=== PATIENT | male | born 1945 | race Caucasian/White ===

== ENCOUNTER 2017-09-28 19:15 | Inpatient (IN) | payer MEDICARE, MEDICAID ==
--- NOTE | 2017-09-28 19:38 | ED Physician Chart ---
ED Chief Complaint/HPI - Patient Information Date Seen:: 09/28/17 Time Seen:: 19:15 Chief Complaint:: Agitation History of Present Illness:: onset x 3 days of agitation and hostile behavior; no report of trauma, H/As, S/T , neck pain, C/P, SOB, Abd. Pain, A/N/V/D/C, fever, chills, or urinary s/s Allergies:: Allergies Allergy/AdvReac Type Severity Reaction Status Date / Time chlorpromazine Allergy Verified 09/28/17 19:28 [From Thorazine] lithium Allergy Verified 09/28/17 19:28 Vitals:: Vital Signs - 8 hr 09/28/17 19:15 Temp 97.2 F HR 66 RR 20 BP 131/76 O2 Sat % 97 Historian:: Patient, EMS Review:: Nurse's Note Reviewed, Old Chart Reviewed, EMS run form Reviewed ED Review of Systems - Review of Systems General/Constitutional: No fever, No chills, No weight loss, No weakness, No diaphoresis, No edema, No loss of appetite Skin: No skin lesions, No rash, No bruising Head: No headache, No light-headedness Eyes: No loss of vision, No pain, No diplopia ENT: No earache, No nasal drainage, No sore throat, No tinnitus Neck: No neck pain, No swelling, No thyromegaly, No stiffness, No mass noted Cardio Vascular: No chest pain, No palpitations, No PND, No orthopnea, No edema Pulmonary: No SOB, No cough, No sputum, No wheezing GI: No nausea, No vomiting, No diarrhea, No pain, No melena, No hematochezia, No constipation, No hematemesis G/U: No dysuria, No frequency, No hematuria, No nacturia Musculoskeletal: No bone or joint pain, No back pain, No muscle pain Endocrine: No polyuria, No polydipsia Psychiatric: Prior psych history, No depression, Anxiety, No suicidal ideation, No homicidal ideation, Auditory hallucination, No visual hallucination Hematopoietic: No bruising, No lymphadenopathy Allergic/Immuno: No urticaria, No angioedema Neurological: No syncope, No focal symptoms, No weakness, No paresthesia, No headache, No seizure, No dizziness, No confusion, No vertigo ED Past Medical History - Past Medical History Obtainable: Yes Past Medical History: HTN Family History: HTN Social History: Non Smoker, No Alcohol, No Drug Use, Single, Care Facility Surgical History: None Psychiatricy History: Schizophrenia, Bipolar Medication: Reviewed Family Medical History - Family Member Mother History Unknown: Yes ED Physical Exam - Physical Examination General/Constitutional: Awake, Well-developed, well-nourished, Alert, No distress, GCS 15, Non-toxic appearing, Ambulatory Head: Atraumatic Eyes: Lids, conjuctiva normal, PERRL, EOMI Skin: Nl inspection, No rash, No skin lesions, No ecchymosis, Well hydrated, No lymphadenopathy ENMT: External ears, nose nl, TM canals nl, Nasal exam nl, Lips, teeth, gums nl , Oropharynx nl, Tonsils nl Neck: Nontender, Full ROM w/o pain, No JVD, No nuchal rigidity, No bruit, No mass, No stridor Respiratory: Nl effort/Exclusion, Clear to Auscultation, No Wheeze/Rhonchi/Rales Cardio Vascular: RRR, No murmur, gallop, rubs, NL S1 S2, Carotid/Femoral/Distal pulses equal bilaterally GI: No tenderness/rebounding/guarding, No organomegaly, No hernia, Normal BS's, Nondistended, No mass/bruits, No McBurney tenderness : No CVA tenderness Extremities: No tenderness or effusion, Full ROM, normal strength in all extremities, No edema, Normal digits & nails Neuro/Psych: Alert/oriented, DTR's symmetric, Normal sensory exam, Normal motor strength, Judgement/insight normal, Mood normal, Normal gait, No focal deficits Other Neuro/Psych comments:: + Psychomotor Agitation; no SIs; Mood/Affect: Stable Misc: Normal back, No paraspinal tenderness ED Labs/Radiology/EKG Results - Lab Results Comments:: unremarkable - EKG Interpretations EKG Time:: 19:47 Rate & Rhythm: 55; SB Comments:: nion-specific st-t changes ED Septic Shock - . Is Septic Shock (SBP<90, OR Lactate>4 mmol\L) present?: No - <6hrs of presentation: Vital Signs: Vital Signs - 8 hr 09/28/17 19:15 Temp 97.2 F HR 66 RR 20 BP 131/76 O2 Sat % 97 ED Reassessment (Disposition) - Reassessment Reassessment Condition:: Improved - Diagnosis Diagnosis:: Agitation; Psychosis; HTN; Anxiety; Paranoid SchiZophrenia; Bipolar Disorder; Medical Clearance - Aftercare/Follow up Instructions Aftercare/Follow-Up Instructions:: Counseled pt regarding lab results/diagnosis & need follow up, Counseled pt & family regarding lab results/diagnosis & need follow up - Patient Disposition Discharge/Transfer:: Acute Care w/in this hosp Admitted to:: [facility] Condition at Disposition:: Stable, Improved
[2017-09-28 19:57] LABS: % BASOPHILS 0.5 % (0.0-2.0); % EOSINOPHILS 4.8 % (0.0-5.0); % LYMPHOCYTES 33.4 % (20.0-50.0); % MONOCYTES 8.4 % (2.0-10.0); % NEUTROPHILS 52.9 % (40.0-80.0); EOSINOPHILE ABSOLUTE 0.3 Th/cmm (0.1-0.4); HEMATOCRIT 35.8 % (41.0-60); HEMOGLOBIN 12.3 gm/dL (12-16); LYMPHOCYTE ABSOLUTE 2.4 Th/cmm (1.5-3.0); MEAN CORPUSCULAR HEMOGLOBIN 30.5 pg (27.0-31.0); MEAN CORPUSCULAR HGB CONC 34.3 pg (28.0-36.0); MEAN PLATELET VOLUME 6.6 fl; MONOCYTE ABSOLUTE 0.6 Th/cmm (0.3-1.0); NEUTROPHILE ABSOLUTE 3.9 Th/cmm (1.8-8.0); PLATELET COUNT 229 Th/cmm (150-400); RED BLOOD COUNT 4.03 Mil/cmm (3.80-5.80); RED CELL DISTRIBUTION WIDTH 12.9 % (11.5-20.0); WHITE BLOOD COUNT 7.2 Th/cmm (4.8-10.8)
[2017-09-28 20:06] LABS: URINE MICROSCOPIC INDICATED? YES; URINE SOURCE CLEAN C
[2017-09-28 20:09] LABS: ALB/GLOB RATIO 1.4 (1.0-1.8); ALBUMIN 3.8 gm/dL (4.2-5.5); ALKALINE PHOSPHATASE 77 U/L (34-104); ANION GAP 10.4 (7.0-16.0); BILIRUBIN,TOTAL 0.3 mg/dL (0.3-1.0); BUN - UREA NITROGEN 12 mg/dL (7-25); CALCIUM SERUM 8.9 mg/dL (8.6-10.3); CARBON DIOXIDE 28.5 mEq/L (21.0-31.0); CHLORIDE 96 mEq/L (98-107); CHOLESTEROL 135 mg/dL (<200); CREATININE - SERUM 0.8 mg/dL (0.7-1.3); GFR AFRICAN-AMERICAN > 60.0 ml/min (>90); GFR NON AFRICAN-AMERICAN > 60.0 ml/min; GLUCOSE 106 mg/dL (70-105); HDL -HIGH DENSITY LIPOPROTEIN 23 mg/dL (23-92); POTASSIUM SERUM 3.9 mEq/L (3.5-5.1); SGOT 13 U/L (13-39); SGPT/ALT 8 U/L (7-52); SODIUM SERUM 131 mEq/L (136-145); TOTAL PROTEIN,SERUM 6.6 gm/dL (6.0-8.3); TRIGLYCERIDES 83 mg/dL (<150)
[2017-09-28 20:10] LABS: ACETAMINOPHEN < 10.0 ug/mL (10.0-30.0); SALICYLATES (ASPIRIN) < 25.0 mg/L (30.0-100.0)
[2017-09-28 20:14] LABS: URINE BILIRUBIN NEGATIVE (NEGATIVE); URINE BLOOD SMALL (NEGATIVE); URINE GLUCOSE (UA) NEGATIVE (NEGATIVE); URINE KETONE NEGATIVE (NEGATIVE); URINE LEUKOCYTE ESTERASE NEGATIVE (NEGATIVE); URINE NITRATE NEGATIVE (NEGATIVE); URINE PROTEIN NEGATIVE (NEGATIVE); URINE UROBILINOGEN 0.2 E.U./dL (0.2 - 1.0)
[2017-09-28 20:28] LABS: AMPHETAMINE URINE NEGATIVE (NEGATIVE); BARBITURATES URINE NEGATIVE (NEGATIVE); BENZODIAZEPINES QUAL URINE NEGATIVE (NEGATIVE); CANNABINOID THC NEGATIVE (NEGATIVE); COCAINE METABOLITE QUAL URINE NEGATIVE (NEGATIVE); METHADONE URINE NEGATIVE (NEGATIVE); METHAMPHETAMINES QUAL URINE NEGATIVE (NEGATIVE); OPIATES (MORPHINE) QUAL. URINE NEGATIVE (NEGATIVE); PHENCYCLIDINE (PCP) URINE NEGATIVE (NEGATIVE); TRICYCLICS (TCA) QUAL. URINE NEGATIVE (NEGATIVE)
[2017-09-28 20:35] LABS: URINE BACTERIA NONE SEEN /hpf (NONE SEEN); URINE CLARITY CLEAR (CLEAR); URINE COLOR YELLOW; URINE EPITHELIAL CELLS OCCASIONAL /lpf (FEW); URINE WBC 0-2 /hpf (0-5)
[2017-09-28 21:15] VITALS: BP 137/66
[2017-09-28] MEDS ORDERED: Magnesium Hydroxide (MOM) 30 mL UDC PO PRN (22:05)
[2017-09-28] MEDS ORDERED: Maalox 30 mL Cup PO PRN (22:05)
[2017-09-29] MEDS: Multivitamin Tab PO SCH (09:26)
--- NOTE | 2017-09-29 11:44 | Psychosocial Evaluation ---
DATE OF SERVICE: 09/28/2017 IDENTIFYING INFORMATION: The patient is a 71-year-old male. CHIEF COMPLAINT: "They tell me the doctor wanted you to go to the hospital." HISTORY OF PRESENT ILLNESS: The patient was sent to [place] because of aggressive behavior and agitation. The patient is a well-known case to me, has been seeing in the ER. The patient reports that he has no clue why he is here. He was acting aggressive prior to coming here. The patient has been seeing me at [facility] and he is being preoccupied with going on his own. He used to live in a boarding care and the patient denies any substance abuse problem. He denies any auditory or visual hallucination or paranoia with history of prior treatment for mental illness, but however, he is unable to give much information. The patient has been on Haldol 5 mg 3 times a day while we have been trying to wean him off, but it did not work. PAST MEDICAL HISTORY: Deferred to the medical problems. HE IS ALLERGIC TO CHLORPROMAZINE AND LITHIUM. It seemed like he may have a history of bipolar disorder. FAMILY AND SOCIAL HISTORY: The patient reports he is single, never . 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 Denies substance abuse problem. Denies family psychotic disorder. MENTAL STATUS EXAMINATION: The patient is appropriately dressed, not very well groomed. He was able to tell me the date, where he is, however, he is not sure why he is here. He denies previous mental illness, yet he is ALLERGIC TO LITHIUM AND CHLORPROMAZINE, which means that he was on those medications before; however, he denies that. So, he is not a very good historian. His long-term memory is good for age, date of . Recent memory is poor, cannot remember events, ____ coming here. He denies auditory or visual hallucinations. He denies that he wanted to harm himself or anybody, he was acting aggressive at the snf. His insight and judgment is impaired. IMPRESSION: AXIS I: Bipolar disorder with psychosis also cognitive disorder, not otherwise specified. His assets, he is accepting treatment. Negative poor coping skills. INITIAL TREATMENT PLAN: The patient will continue with the Haldol. We will do group therapy, milieu therapy, and individual therapy. ESTIMATED LENGTH OF STAY: 3-7 days. DISCHARGE CRITERIA: No longer agitated or threatening. After discharge, outpatient. [facility]# [id number]
--- NOTE | 2017-09-29 12:42 | History & Physical ---
ADMIT DATE: CHIEF COMPLAINT: "I don't know." HISTORY OF PRESENT ILLNESS: The patient was transferred from [facility] to [facility] Room after the patient was noted to have increasing agitation and aggressive behavior towards staff. The patient was evaluated by Emergency Room MD and subsequently admitted to the Geropsych Unit. I have been asked this patient to see for medical management. I have been following this patient at [facility]. PAST MEDICAL HISTORY: Remarkable for: 1. Hypertension. 2. DJD. 3. Psychotic disorder. MEDICATIONS: List has been reviewed and reconciled appropriately. ALLERGIES: The patient is not allergic to medication. SOCIAL HISTORY: He lives in a chcf, has a history of smoking cigarette, but no alcohol or drug abuse. FAMILY MEDICAL HISTORY: Remarkable for hypertension. REVIEW OF SYSTEMS: The patient denies any headache, blurred vision, double vision, dysphagia, odynophagia, runny nose, stuffy nose, fever, chills, cough, chest pain, shortness of breath, palpitation, dizziness, nausea, vomiting, diarrhea, dysuria, hematuria, hematochezia, melena, no seizure or syncopal episode. PHYSICAL EXAMINATION: GENERAL: Alert, awake, oriented, lying in the bed without any acute distress. VITAL SIGNS: Temperature 97.6, pulse 64, respiratory rate 18, blood pressure 132/68. HEENT: Normocephalic, atraumatic. Extraocular muscles are intact. Tongue was pink and coated. Oropharynx congested. Nasal mucosa congested. No oral lesions noted. No exudate noted. No sinus tenderness. External auditory canal and tympanic membranes are well visualized. NECK: Supple, no JVD, no hepatojugular reflex. No lymphadenopathy, thyromegaly, or carotid bruit. HEART: Both heart sounds are regular. No S3, no S4, no murmur. CHEST: Lung equal in expansion. Mild expiratory wheezing. ABDOMEN: Soft. No guarding, no rigidity. Bowel sounds are present. No palpable mass. EXTREMITIES: No edema, no cyanosis, no clubbing. Peripheral pulses are +2. No calf tenderness noted. EXTERNAL GENITALIA AND RECTAL EXAMINATION: Not done as per patient's request. NEUROLOGIC: Alert, awake, oriented to time, place, person. 2-12 cranial nerves are intact. Power in upper and lower extremities 5+. Sensory to light touch intact. Babinskis in both toes are going down. No cerebral sign. AVAILABLE DIAGNOSTIC DATA: Performed in the Emergency Room has been reviewed. CLINICAL IMPRESSION: 1. Psychotic disorder exacerbation. 2. Hypertension. 3. Degenerative joint disease. 4. Chronic obstructive pulmonary disease, most likely. 5. Nicotine dependency. PLAN: 1. Monitor blood pressure. 2. Antihypertensive medicine. 3. Psychotic evaluation and management deferred to psychiatrist. 4. Smoking cessation counseling discussed. 5. Adding Spiriva for his COPD. 6. Pulmonary function test to be done as an outpatient. 7. The patient is medically stable to participate in the activity provided at the Geropsych Unit. 8. The patient will be followed by us during his stay in the hospital. 9. Care plan reviewed and discussed with staff. JOB# [id number]
[2017-09-29 21:55] LABS: A1C % 6.2 % (4.0-6.0)
[2017-09-30] MEDS: Magnesium Hydroxide (MOM) 30 mL UDC PO PRN (08:43)
[2017-09-30] MEDS: Multivitamin Tab PO SCH (08:44)
--- NOTE | 2017-10-01 00:04 | Progress Notes ---
DATE: 09/30/2017 SUBJECTIVE: Case discussed with staff of the patient and reviewed record. The patient continues to be unpredictable, impulsive, internally preoccupied, confused, unable to make safe plan for self-care. He is compliant with the medication with no side effects, no sedation or nausea. No extrapyramidal symptoms. He is trying to convince me to send him to an apartment or to at least a senior care; however, I am not sure that he can live along with his behavior. He needs supervision unpredictable, impulsive. His lab work showed low hematocrit. The rest within normal range. Chemistry panel with low sodium and high blood sugar, high hemoglobin A1c and low albumin, the rest within normal range. Urinalysis shows small blood and urine drug screen is negative. RPR nonreactive. I will be consulting with the medical doctor, Dr. Morales regarding abnormal lab work and I discussed with Makenzie, who is going to page him to let him know about that, so he can handle it. We will continue to work with the patient in group therapy, milieu therapy, and adjust the medications. JOB# [id number]
[2017-10-01] MEDS: Multivitamin Tab PO SCH (09:33)
[2017-10-01] MEDS: Magnesium Hydroxide (MOM) 30 mL UDC PO PRN (14:23)
--- NOTE | 2017-10-02 01:13 | Progress Notes ---
DATE: 10/01/2017 SUBJECTIVE: Case discussed with staff of the patient, reviewed records. The patient has been isolating himself. Continues to be unpredictable, impulsive, needing redirection. He is sleeping better, eating better. He believes that he can live on his own; however, I am not sure of that because of her aggressive behavior and confusion. Unable to make safe plan for self-care. No side effects to the medication, no sedation, no nausea and no extrapyramidal symptoms. PLAN: We will continue to work with the patient in group therapy, milieu therapy, adjust the medication as needed. JOB# [id number]
[2017-10-02] MEDS: Multivitamin Tab PO SCH (08:48)
--- NOTE | 2017-10-02 22:08 | Progress Notes ---
DATE: 10/02/2017 SUBJECTIVE: The patient seen and examined. The patient denies any chest pain, short of breath, palpitation, dizziness, nausea, vomiting. PHYSICAL EXAMINATION: VITAL SIGNS: Temperature 97, pulse is 64, respiratory rate 18, blood pressure 140/80. HEENT: Poor dentition. NECK: Supple, no JVD. HEART: Regular, no murmur. CHEST: Lung equal in expansion. LUNGS: No wheezing, no crackles. ABDOMEN: Soft. No guarding, rigidity. Bowel sounds heard. No palpable mass. EXTREMITIES: No edema. CLINICAL IMPRESSION: 1. Psychotic disorder exacerbation. 2. Hypertension. 3. Chronic obstructive pulmonary disease. 4. Degenerative join disease. 5. Smoking. PLAN: 1. Psych followup and psych medication. 2. Low sodium diet. 3. Monitor blood pressure. 4. Spiriva as an outpatient. 5. General nursing care. 6. The patient is stable for psychiatric treatment. JOB# [id number]
--- NOTE | 2017-10-02 23:42 | Progress Notes ---
DATE: 10/02/2017 SUBJECTIVE: Case was discussed with staff of the patient, reviewed records. The patient continues to stay to himself. In general, he reports sleeps well, eats well. He continues to be unpredictable, impulsive, very poor insight about prior to coming here his aggressive behavior. He denies any current side effects with the medication, no sedation, no nausea. PLAN: We will continue to work with the patient in group therapy, milieu therapy, adjust the medication as needed. JOB# [id number]
[2017-10-03] MEDS: Multivitamin Tab PO SCH (08:57)
--- NOTE | 2017-10-04 00:58 | Progress Notes ---
DATE: 10/03/2017 SUBJECTIVE: Case discussed with staff of the patient and reviewed records. The patient continues to have poor insight about his behavior, minimizing events that led to his admission. He is sleeping well and eating well. He would like to go to live on his own; however, not sure if he can live on his own or he may have to go to [place] and then later decide if he would be able to do that and so far no side effects with the medication, no sedation, no nausea, no extrapyramidal symptoms. We will continue to work with the patient in group therapy, milieu therapy, adjust the medication as needed. JOB# [id number]
[2017-10-04] MEDS: Multivitamin Tab PO SCH (09:20)
--- NOTE | 2017-10-04 13:11 | Progress Notes ---
DATE: 10/04/2017 Case was discussed with staff of the patient, reviewed records. The patient has been calmer in general. He is sleeping well, eating well. We are trying to work on placement for him and he does not want to going to [place], would like to go to a lesser level of care, though I do not have doubts about that. He is sleeping better, eating better. No side effects with the medication, no sedation nausea, no extrapyramidal symptoms. Her lab work showed low hematocrit. The rest of the CBC within normal range. Chemistry panel with low sodium and one-third to one and high blood sugar and hemoglobin, low albumin, and the rest within normal range. Urinalysis with small blood in the urine. His toxicology screen is negative. RPR ____. Dr. Morales was already consulted about his abnormal lab work and we will continue outpatient group therapy, milieu therapy, adjust the medication as needed. JOB# [id number]
[2017-10-05] MEDS: Multivitamin Tab PO SCH (08:59)
--- NOTE | 2017-10-06 00:07 | Progress Notes ---
DATE: 10/05/2017 SUBJECTIVE: Case is discussed with the staff of the patient and reviewed records. The staff reports that the patient has been hallucinating. He was wandering on the unit. When I talked to him, he was minimizing any hallucinations. He tends to get easily agitated. PLAN: I will be adding Depakote to his medication to help with his agitation and irritability. No side effects from the medication, no sedation, no nausea, no extrapyramidal symptoms. We will continue to work the patient in group therapy, milieu therapy, adjust the medication as needed. JOB# [id number]
[2017-10-06] MEDS: Multivitamin Tab PO SCH (09:32)
--- NOTE | 2017-10-06 23:18 | Progress Notes ---
DATE: 10/06/2017 SUBJECTIVE: Case was discussed with staff of the patient and reviewed records. The patient continues to be reported by the staff to be at times responding to internal stimuli, though when I ask him, he would deny it. He continues to be unpredictable, impulsive, needing redirection. He is sleeping well and eating well. He has no side effect to the medication, no sedation, no nausea and I did add Depakote to his medication to help with improving his behavior with no side effects, no sedation, no nausea and we will continue to work with the patient in group therapy, milieu therapy, adjust medication as needed. JOB# [id number]
[2017-10-07] MEDS: Multivitamin Tab PO SCH (10:00)
[2017-10-07] MEDS: Magnesium Hydroxide (MOM) 30 mL UDC PO PRN (21:10)
--- NOTE | 2017-10-07 22:05 | Progress Notes ---
DATE: 10/07/2017 SUBJECTIVE: The patient was sent to [place] due to aggressive behaviors and agitation. The patient is being followed at [facility] by Dr. Syed for ongoing behavioral disturbances. States he is here because of "agitation." States he got agitated because he was not being patient with case management. Dr. Syed noting over the past few days that he still remains somewhat psychotic, responding to internal stimuli, unruly, still with erratic and impulsive behaviors. Medications were noted. The patient is eating fairly well, sleeping with qualitative researcher awakenings. Currently on Haldol and Depakote. ASSESSMENT: The patient remains unruly, agitated, ongoing psychotic symptoms. PLAN: Given his ongoing behaviors. He is not safe for discharge. We will monitor and titrate and adjust medications. JOB# [id number]
[2017-10-08] MEDS: Multivitamin Tab PO SCH (09:04)
[2017-10-08] MEDS: Magnesium Hydroxide (MOM) 30 mL UDC PO PRN (20:08)
--- NOTE | 2017-10-08 21:25 | Progress Notes ---
DATE: 10/08/2017 SUBJECTIVE: The patient was sent from [place] due to aggressive behaviors, agitation. The patient walking around today. He states he wants to go to ____another hospital_. Concerns for underlying psychotic symptoms. The patient is calm on exam. Slept for about 6 hours. Staff noting he remains anxious, somewhat depressed, mildly suspicious, fair orientation, calm, following unit rules and directions. MEDICATIONS: Noted. No medication side effects. ASSESSMENT: The patient seems to be improving, calmer, more cooperative, psychotic symptoms are still ongoing but seem to be dissipating, paranoia dissipating. PLAN: We will continue to monitor, continue Haldol. The patient tolerating well. JOB# [id number]
[2017-10-09] MEDS: Multivitamin Tab PO SCH (08:11)
[2017-10-10] MEDS: Multivitamin Tab PO SCH (08:40)
--- NOTE | 2017-10-10 10:54 | Progress Notes ---
DATE: 10/09/2017 Case discussed with staff of the patient, reviewed records. The patient told me today that the apparently the case worker finding a different place and I will need to check with the case worker. She is not currently available to see if this is a safe place for him that it will fit his needs because of his history of psychosis. He is still confused, unpredictable, impulsive and needing redirection. He is compliant with the medication with no side effects, no sedation, no nausea, and no extrapyramidal symptoms and we will continue work with the patient in group therapy, milieu therapy, and adjust medications as needed. JOB# [id number]
--- NOTE | 2017-10-11 02:42 | Progress Notes ---
DATE: 10/10/2017 Case was discussed with staff of the patient and reviewed records. I talked to the protective services case worker, who said that his daughter and the staff found him a place in a boarding care where the doctors are also going to monitor him and he is being monitored there and the doctors will be consulted for displacement. The patient does not want to go back to [place]. He is sleeping well and eating well. He is not acting anyway dangerous. He has been compliant to the medication with no side effects, no sedation, no nausea, and no extrapyramidal symptoms. I did order his Depakote level to be checked, results are pending. We will continue to work with the patient in group therapy, milieu therapy, and adjust the medication as needed. JOB# [id number]
[2017-10-11] MEDS: Multivitamin Tab PO SCH (09:41)
--- NOTE | 2017-10-11 22:34 | Progress Notes ---
DATE: 10/11/2017 SUBJECTIVE: Case was discussed with the staff of the patient and reviewed records. Apparently his daughter wants him to go to a board and care where there is a doctor to come and check on him; they will be monitoring his medication. Does not want to go back to [place]. The patient seems to be able to take care of himself, sleeping well, eating well. No suicidal ideation, no homicidal ideation, no paranoia. No side effects. Today we are still working on discharge plan. Lab work shows low hematocrit 35.8, hemoglobin within normal range. Chemistry panel with low sodium and high blood sugar, high hemoglobin A1c and the rest within normal range. His urinalysis with small blood in the urine and urine drug screen was negative. RPR nonreactive. PLAN: We will continue to work on the discharge plan. We will continue to work with the patient in group therapy, milieu therapy, and adjust medications as needed. JOB# [id number]
--- NOTE | 2017-10-11 23:02 | Progress Notes ---
DATE: 10/11/2017 SUBJECTIVE: The patient was seen and examined. OBJECTIVE: GENERAL: The patient was lying in the bed. The patient has no new complaint. VITAL SIGNS: Temperature 97.8, pulse 65, respiratory rate is 18, blood pressure 143/64. HEENT: No facial asymmetry. NECK: Supple, no JVD. HEART: Regular. CHEST: Lung equal in expansion. Mild expiratory wheezing. ABDOMEN: Soft. No guarding, no rigidity. Bowel sounds present. No palpable mass. EXTREMITIES: No edema. NEUROLOGIC: Alert, awake, follows commands. No gross neuro deficit noted. CLINICAL IMPRESSION: 1. Chronic obstructive pulmonary disease. 2. Hypertension. 3. Degenerative joint disease. 4. Smoking. 5. Psychotic disorder exacerbation. PLAN: 1. Antihypertensive medicine. 2. Low sodium diet. 3. Add Spiriva upon discharge. 4. p.r.n., albuterol inhaler. 5. Psychotic medication and followup. 6. General nursing care. 7. We will continue to follow this patient's during his stay in the hospital. JOB# [id number]
[2017-10-12] MEDS: Multivitamin Tab PO SCH (08:04)
--- NOTE | 2017-10-12 14:20 | Discharge Summary ---
DATE OF DISCHARGE: 10/12/2017 IDENTIFYING INFORMATION: The patient is a 71-year-old male. CHIEF COMPLAINT: He reported that they told him, he need to go to hospice. HISTORY OF PRESENT ILLNESS: The patient was sent [facility] because of aggressive behavior, agitation. The patient is a well-known case to me, as I have been seeing him at [facility]. He reports, there is no clue why he was here, he was acting aggressive prior to coming here, I saw him at [facility] preoccupied with going to his own place. He used to live in a [facility]. The patient denies any substance abuse problem. Denies any auditory or visual hallucinations. History of prior treatment for mental illness. However, he is unable to give much information. He was on Haldol 5 mg twice a day. We tried to wean him off, but did not work. MEDICAL HISTORY: HE IS ALLERGIC TO CHLORPROMAZINE AND LITHIUM. He has hypertension, degenerative joint disease, psych problems, and COPD. COURSE IN THE HOSPITAL: The patient was continued with medication Haldol 5 mg 3 times a day and Depakote was added 250 mg twice a day to help improve his behavior. The patient progressively got better. Sleeping well, eating well. The patient also seen by Dr. Hess who will manage his medical condition. He was also on Sinemet x100 mg twice a day, multivitamin, magnesium hydroxide. His daughter agreed for the patient to go to a [facility] and he did not want to go back to [facility], as he was doing well, sleeping well, eating well. He seems to be able to take care of himself in [facility] and that they say they have a psychiatrist there that would monitor his medications, so we felt the patient could be discharged to a lesser level of care. FINAL DIAGNOSIS: AXIS I: Bipolar disorder with psychosis, cognitive disorder, not otherwise specified. MEDICAL DIAGNOSIS: Degenerative joint disease, hypertension. The patient will be going to a [facility], will follow up with the psychiatrist, primary care physician, and a therapist. EXPECTED OUTCOME: Stable if the patient complies with the above. JOB# [id number]
== END 2017-10-12 16:30 | DRG 885 ==
LOC: ER 19:15 → GERO 20:42
PROVIDERS: ADMIT Psychiatry & Neurology Psychiatry; ATTEND Psychiatry & Neurology Psychiatry
DX: F31.5 Bipolar disorder, current episode depressed, severe, with psychotic features (principal); I10 Essential (primary) hypertension; M19.90 Unspecified osteoarthritis, unspecified site; J44.9 Chronic obstructive pulmonary disease, unspecified; F17.210 Nicotine dependence, cigarettes, uncomplicated; F41.9 Anxiety disorder, unspecified
CPT/HCPCS: 36415-UA; 80053-TC; 80061-TC; 80307; 80320-TC; 80329-TC; 81001-TC; 83036-90; 84443-TC; 85025-TC; 86592-TC; 90899; 93005; G0410; Z7610